=== PATIENT | female | born 1945 | race Caucasian/White ===

== ENCOUNTER 2024-08-19 20:39 | Inpatient (IN) | payer OTHER, SELFPAY ==
[2024-08-19] VITALS (7 sets, daily range): BP systolic 125–157; BP diastolic 53–90; BMI 39.7; BMI 40.6
--- NOTE | 2024-08-19 17:32 | ED.GENMED ---
History of Present Illness
General
Chief Complaint: Breathing Problem
Source: patient
Exam Limitations: none
Time Seen by Provider: 08/19/24 17:30
History of Present Illness
History of Present Illness:
See MDM
Past History
Past History
ED Past Medical History: CHF, COPD, HTN, Hypercholesterolemia, IDDM, Renal failure and Other (Obstructive sleep apnea, pulmonary hypertension, uses CPAP as well as home O2, peripheral neuropathy, chronic neck pain)
ED Past Surgical History: Orthopedic (Bilateral knee replacements, cervical spine surgery)
Social History
Tobacco: Former smoker (Quit in the )
Alcohol: None
Drug: None
Personal: Single
Living: alone
Employment: Retired
Family History
Family History: Other (Noncontributory)
Phy Exam
Physical Exam
Physical Exam:
See MDM
Scores
Heart Failure Risk
Heart Failure Risk Score: Not Applicable
Course
Orders/Labs/Results
Orders:
Orders
08/19/24 17:30
Electrocardiogram (*1) Urgent
Reason for Study: Shortness of Breath
EKG- Treatment ONCE
Dexamethasone Sod Phosphate [Decadron] 10 mg IV NOW STA
Ipratropium/Albuterol Sulfate [Duoneb] 6 ml INH R NOW ONE
08/19/24 17:31
CR Chest - 2 Views Urgent
Comment:
Reason For Exam: SOB, cough, COPD
08/19/24 17:40
Complete Blood Count/With Diff Urgent
Comprehensive Metabolic Panel Urgent
NT-proBNP Urgent
Troponin I Urgent
08/19/24 18:55
Insulin Aspart [NOVOLOG vial] 5 units SC NOW STA
Piperacillin/Tazo 3.375 Gram [Zosyn] 3.375 gram in 50 ml IV NOW
Vancomycin [Vancocin] 2,000 mg 0.9% Sodium Chloride 500 ml [Nss] 500 ml IV NOW
Abnormal Lab Results
08/19/24 08/19/24
17:40 19:12
WBC 14.4 H 10^3/uL
(4.8-10.8)
MCHC 31.1 L g/dL
(33.0-37.0)
MPV 10.7 H fL
(7.4-10.4)
Abs Immat Gran (auto) 0.1 H 10^3/uL
(0-0.05)
Absolute Neuts (auto) 12.2 H 10^3/uL
(1.4-6.5)
Absolute Lymphs (auto) 0.9 L 10^3/uL
(1.2-3.4)
Absolute Monos (auto) 1.1 H 10^3/uL
(0.1-0.6)
Neutrophils % 85.0 H %
(42.2-75.2)
Lymphocytes % 6.5 L %
(20.5-51.1)
Chloride 97 L mmol/L
(98-107)
Carbon Dioxide 35 H mmol/L
(22-30)
Creatinine 1.2 H mg/dL
(0.6-1.0)
Glucose 233 H mg/dl
(70-99)
AST 13 L U/L
(14-36)
POC Glucose 241 H mg/dl
(70-99)
08/19/24 17:40
08/19/24 17:40
Vital Signs
Initial and Last Documented VS:
Initial Vital Signs
Temp Pulse Resp BP Pulse Ox
100.0 F 97 25 151/85 93
08/19/24 17:24 08/19/24 17:24 08/19/24 17:24 08/19/24 17:24 08/19/24 17:24
Last Documented Vital Signs
Temp Pulse Resp BP Pulse Ox
100.0 F 94 30 125/57 93
08/19/24 17:24 08/19/24 18:45 08/19/24 18:45 08/19/24 18:17 08/19/24 18:59
MDM/Problems Addressed
Differential Diagnosis Includes:
HPI and MDM Narrative:
79-year-old female presenting with worsening shortness of breath since today. Patient does have a history of COPD and finished a Medrol Dosepak a few days ago. She had uncomplicated oral surgery yesterday where she had 2 teeth pulled. Patient
states this feels like COPD. She also states that she has a history of congestive heart failure. She placed herself on her BiPAP machine with no resolution. I did notice edematous legs bilaterally but she states this is chronic. EMS provided
aspirin.
On exam, patient is audibly short of breath. She has expiratory wheezing throughout. Will treat as COPD exacerbation with DuoNebs and will give IV Decadron. Will obtain chest x-ray.
Physical exam
General: Mildly uncomfortable, visibly short of breath
HEENT: protecting airway. 2 surgically removed teeth without evidence of infection
Neck: appears supple
CV: No evidence of cyanosis. Regular rate and rhythm
Resp: No accessory muscle use. Expiratory wheezing throughout
Abd: Non-distended
Extremities: Mild pitting edema bilateral lower extremities which patient states is chronic
Neuro: alert
Psych: Normal affect
Skin: Intact
Problems Addressed including Acute and Chronic Conditions affecting care:
1. COPD exacerbation
Acuity: acute
Prognosis: stable
Details: Patient given IV steroids and patient started on DuoNebs. Will obtain chest x-ray
2. Pneumonia
Acuity: acute
Prognosis: stable
Details: Will start antibiotics and admit
3. Hypoxia
Acuity: acute
Prognosis: unstable
Details: Patient requiring 2 L nasal cannula
Updates
7 PM on reassessment after breathing treatment and steroids, patient still symptomatic. Oxygen now decreasing to 77% on room air. Will place on 2 L. Chest x-ray concerning for left lower lobe pneumonia. Will start antibiotics and admit
Differential Diagnosis (but not limited to): COPD exacerbation, CHF exacerbation, pneumonia
Testing considered: CT PE
Drug therapy (if applicable): OTC meds, please see d/c instruction regarding Rx drugs
Amount and/or Complexity of Data Reviewed
Clinical info obtained from: Patient
External data reviewed: N/A
Labs I independently reviewed (but not limited to): Leukocytosis, hyperglycemia
Radiology: X-ray independently reviewed: Chest x-ray concerning for left lower lobe pneumonia
Pulse Ox: hypoxic
EKG independently reviewed: Sinus rhythm, PVCs, normal axis, no STEMI
Core Sucker: Sinus rhythm
Critical Care: N/A
Risk of Complication:
Social Determinants of health: Good social support
Discussed with other providers: Hospitalist
Escalation of Care includes Admit/Obs: Given hypoxia and pneumonia and COPD exacerbation, will admit
Occasional wrong word or 'sound a like' substitutions may have occurred due to the inherent limitations of voice recognition software. Read the chart carefully and recognize, using context, where substitutions have occurred.
*Critical Care Note
Total Time (30-74mins, 75-104mins- exclusive of procedures): Not Applicable
ED Attending Note
-
Portions of this chart may have been created with voice recognition software.� Occasional wrong word or��sound alike� substitutions may have occurred due to the inherent limitations of voice recognition software.
Discharge Plan
Departure
Patient Disposition: Admit
Date of Disposition: 08/19/24
Time of Disposition: 19:14
Admit to: Telemetry
Presentation/result/management discussed w/ accepting MD/DO: Hospitalist
Discharge Problem:
PNA (pneumonia), Acute exacerbation of chronic obstructive pulmonary disease, Hypoxia
Prescriptions:
No Action
insulin glargine [Lantus U-100 Insulin] 1,000 UNITS/10 ML solution
8 units SC HS
aspirin 81 MG tablet,delayed release (DR/EC)
81 mg PO DAILY
ferrous sulfate [FeroSul] 325 MG tablet
325 mg PO BID
rosuvastatin 10 MG tablet
10 mg PO QPM
albuterol sulfate 1 PUFF HFA aerosol inhaler
2 puff inhalation R Q4HPRN PRN (Reason: sob/wheezing) Qty: 1 0RF
Rx Instructions:
please give with spacer
lidocaine 4 % Adhesive Patch,Medicated
1 patch TOPICAL BID PRN (Reason: neck or hip pain)
Rx Instructions:
07/08/22-- currently placed on lower back area
insulin aspart U-100 [Novolog FlexPen U-100 Insulin] 100 unit/mL (3 mL) insulin pen
10 unit SC MEALS
buprenorphine 10 mcg/hour patch weekly
1 patch transdermal MIRANDA
Patient Comments:
applied to behind neck area
Breztri Aerosphere 160-9-4.8 mcg/actuation HFA aerosol inhaler
2 inh INHALATION R BID
midodrine 5 mg Tablet
5 mg PO TID@0800,1300,1800 Qty: 90 0RF
cefdinir 300 mg Capsule
300 mg PO DAILY Qty: 4 0RF
oxycodone 5 mg Tablet
2.5 mg PO Q4HPRN PRN (Reason: severe pain) Qty: 15 0RF
Referrals:
Kenan Ewing DO [Family Provider] -
Interventions
Interventions:
*Risk Screen - Suicide Last Done: 08/19/24 17:31
*General Assessment Last Done: 08/19/24 17:32
*Neglect/Abuse Screening Last Done: 08/19/24 17:31
ED- Fall Risk Assessment Last Done: 08/19/24 17:32
*ED COVID-19 Vaccine History Last Done: 08/19/24 17:30
ED- Cardiac Assessment Last Done: 08/19/24 17:33
ED- Pulmonary Assessment Last Done: 08/19/24 17:33
Discharge Date and Time
Print Language: YEMENI
[2024-08-19] MEDS: DUONEB 6 ML INH (17:39)
[2024-08-19] MEDS: DECADRON 10 MG IV (17:39)
[2024-08-19 17:53] LABS: % Basophils 0.2 % (0-2); % Eosinophils 0.5 % (0-6); % Immature Granulocytes 0.4 % (0-0.5); % Lymphocytes 6.5 % (20.5-51.1); % Monocytes 7.4 % (1.7-9.3); Absolute Eosinophils 0.1 10^3/uL (0-0.7); Absolute Immature Granulocytes 0.1 10^3/uL (0-0.05); Absolute Lymphocytes 0.9 10^3/uL (1.2-3.4); Absolute Monocytes 1.1 10^3/uL (0.1-0.6); Absolute Neutrophils 12.2 10^3/uL (1.4-6.5); Hematocrit 40.8 % (37.0-47.0); Hemoglobin 12.7 g/dL (12.0-16.0); Mean Corp Hgb Conc. 31.1 g/dL (33.0-37.0); Mean Corpuscular Hgb 29.2 pg (27.0-31.0); Mean Corpuscular Volume 93.8 fL (81.0-99.0); Mean Platelet Volume 10.7 fL (7.4-10.4); Nucleated Red Blood Cells % 0 %; Platelet Count 194 10^3/uL (130-400); Red Blood Cell Count 4.35 10^6/uL (4.20-5.40); Red Cell Dist. Width 13.4 % (11.5-14.5); White Blood Cell Count 14.4 10^3/uL (4.8-10.8)
[2024-08-19 18:03] LABS: ALT (SGPT) < 10 U/L (0-35); AST (SGOT) 13 U/L (14-36); Albumin 3.8 g/dl (3.5-5.0); Alkaline Phosphatase 56 U/L (38-126); Blood Urea Nitrogen 16 mg/dl (7-17); Calcium 8.6 mg/dl (8.4-10.2); Carbon Dioxide 35 mmol/L (22-30); Chloride 97 mmol/L (98-107); Estimated Creatinine Clearance 51 ml/min; Glucose 233 mg/dl (70-99); Potassium 4.3 mmol/L (3.5-5.1); Sodium 140 mmol/L (135-145); Total Bilirubin 0.6 mg/dl (0.2-1.3); Total Protein 6.3 g/dl (6.3-8.2); eGFR 46.62
[2024-08-19 18:15] LABS: NT-proBNP 1360 pg/ml; Troponin I < 0.012 ng/ml
[2024-08-19 19:12] LABS: Glucose - Point of Care 241 mg/dl (70-99)
[2024-08-19] MEDS: ZOSYN 50 IV (19:17)
[2024-08-19] MEDS: NOVOLOG vial 5 UNITS SC (19:20)
--- NOTE | 2024-08-19 19:44 | HPS.HSE ---
Family Physician
-
Family Physician: eKnan Ewing
Chief Complaint
-
Shortness of Breath and Chest Tightness
History of Present Illness
Patient is a 79 y/o female past medical history of COPD, CHF, CKD, and DM who presents with shortness of breath. Patient reports suddenly at 2pm she developed shortness of breath that was associated with chest tightness. She reports the chest
tightness occurs on the right side of her chest every time she takes a deep breath. Son notes she was in tears the pain was so intense. Patient reports she tried using her home oxygen that she has for activity, and tried using her CPAP without
improvement in her symptoms. She recently was on steroids for a COPD exacerbation last week, but notes she was feeling well yesterday. She denies any fevers, cough or increased mucus production.
Medical History
Past Medical History
Past Medical History: Reports Other
Additional Past Medical History:
COPD
Chronic HFpEF
Diabetes Mellitus, Type II
Diabetic Neuropathy
CKD Stage III
Recurrent UTIs
Obstructive Sleep Apnea
Chronic Pain Syndrome
Past Surgical History: Reports Other
Additional Past Surgical History:
Bilateral Knee Replacements
Social History
Tobacco: Former Smoker
Alcohol: None
Personal:
Living: Alone
Family History
Family History: Not pertinent
Allergies / Home Medications
Allergies reflects when Allergies were last updated in [facility].
Home Medications with original date entered in [facility]
Allergy/Medication List:
Allergies
Allergy/AdvReac Type Severity Reaction Status Date / Time
morphine Allergy Unknown Verified 08/19/24 17:47
Home Medications
aspirin 81 mg tablet,delayed release 81 mg PO DAILY Blood clot prevention/tx 12/06/21
insulin glargine 100 unit/mL subcutaneous solution (Lantus U-100 Insulin) 8 units SC HS Diabetes 12/06/21
albuterol sulfate 90 mcg/actuation aerosol inhaler 2 puff inhalation R Q4HPRN PRN sob/wheezing ##1 12/11/21
insulin aspart U-100 100 unit/mL (3 mL) subcutaneous pen (Novolog FlexPen U-100 Insulin aspart) 10 unit SC AC Diabetes 07/06/22
ergocalciferol (vitamin D2) 1,250 mcg (50,000 unit) capsule 1,250 mcg PO TH 08/19/24
fluticasone fur. 100 mcg-umeclid 62.5 mcg-vilant 25 mcg inhalat.powder (Trelegy Ellipta) 1 inh inhalation R DAILY 08/19/24
gabapentin 100 mg capsule 100 mg PO BID 08/19/24
vitamins A,C,Q-lvat-fjsjow 4,296 mcg-226 mg-90 mg capsule (PreserVision AREDS) 1 cap PO DAILY 08/19/24
Review of Systems
-
A 12 point ROS was completed and negative except as noted: Yes
Constitutional: Denies Fever or Chills
Respiratory: Reports See HPI
Cardiac: Reports Chest Pain; Denies Palpitations
Physical Exam
Vital Signs
Vital Signs
Temp Pulse Resp BP Pulse Ox
100.0 F 94 30 125/57 93
08/19/24 17:24 08/19/24 18:45 08/19/24 18:45 08/19/24 18:17 08/19/24 18:59
Physical Exam
General: Well Developed, Well Nourished and Conversant (Pulse ox frequently dropped to 86% on 2L with conversation)
HEENT: Anicteric, Moist mucous membranes and Oxygen (Nasal Cannula)
Respiratory: Clear, Non Labored Respirations and Decreased Breath Sounds; No Wheezes or Accessory Resp Muscle Use
Cardiac: S1/S2 and Regular Rhythm
GI: Soft and Non Tender
Rectal: Deferred by Provider
Musculoskeletal: No Clubbing, No Cyanosis and Other (Non-pitting edema bilateral lower extremities which patient reports is chronic)
Skin: Warm and Dry
Neuro: Awake, Alert, Oriented and Nonfocal/grossly intact
Psych: Calm
Laboratory Results
-
08/19/24 17:40
08/19/24 17:40
Laboratory Results
Total Bilirubin 0.6 mg/dl (0.2-1.3) 08/19/24 17:40
AST 13 U/L (14-36) L 08/19/24 17:40
ALT < 10 U/L (0-35) 08/19/24 17:40
Alkaline Phosphatase 56 U/L (38-126) 08/19/24 17:40
Troponin I < 0.012 ng/ml 08/19/24 17:40
Data Reviewed
-
Diagnostic Radiology: Report Reviewed by me
Lab Data: Labs Reviewed by me
Impression/Plan
-
Acute on Chronic Hypoxic Respiratory Failure, possible COPD Exacerbation vs Pneumonia vs Pulmonary Embolism
-Consult Pulmonary
-Continue supplemental oxygen
-Renal function is borderline and patient expresses concern about prior kidney injury following IV contrast in the past therefore will hold on CT PE Study - Check D-Dimer - If positive plan to start heparin drip and obtain VQ scan in AM
-Patient received dose of IV antibiotics in ED - CXR is not convincing for pneumonia, however patient is noted with leukocytosis which could be related to recent steroids - Check Procalcitonin - If negative stop antibiotics
-Continue Pulmicort, DuoNeb and Decadron 4mg q12h for COPD Exacerbation
Chronic HFpEF
-Continue low sodium diet
-Monitor Is&Os and Daily Weights
Diabetes Mellitus, Type II
-Continue Lantus and Novolog
-Monitor sugars and continue coverage insulin
Diabetic Neuropathy
-Continue Gabapentin
CKD Stage III
-Creatinine stable
Obstructive Sleep Apnea
-Continue CPAP
DVT proph: Heparin
Code Status: DNR
[2024-08-19] MEDS: VANCOCIN 540 MG IV (20:14)
[2024-08-19 20:35] LABS: APTT 31.1 Sec (23.4-35.0)
[2024-08-19 20:37] LABS: D-Dimer 0.46 ug/mlFEU (0.00-0.50)
[2024-08-19 20:55] LABS: Procalcitonin < 0.05 ng/ml (0.0-0.25)
--- NOTE | 2024-08-19 21:11 | W.PN.UPDATE ---
Update Note
Progress Note Update
This note serves as an addendum to the H&P by inventory accountant TONJA ROBLES
HPI:
79F Class II Obesity BMI 39, HX COPD, home O2 mainly at night Chr HFpEF, CKD3, IDT2DM seen at ER :
- pw sudden onset shortness of breath associated with chest tightness
- report Adina is at right side exacerbate by deep breath. Son notes she was in tears the pain was so intense.
- no relieve with home O2 and CPAP without improvement in her symptoms.
- recently was on steroids for a COPD flare last week, but notes she was feeling well yesterday.
ROS
- denies any fevers, cough or increased mucus production.
PHX as above
PE
Gen: NAD, not toxic , Obese
HEENT: anicteric
Neck: not JVD
Lungs:s symmetric AE, no wheeze
Cor: RRR S1 S2
Abdomen: obese
CV RN: AAO3
MS:
Psych: appropriates
Data
CXR:
1. Mild chronic right to left mediastinal shift.
2. Large bilateral pericardial fat pads.
3. Mild chronic scarring in the left lower lobe.
EKG
SINUS RHYTHM WITH OCCASIONAL PREMATURE VENTRICULAR COMPLEXES
LOW VOLTAGE QRS
BORDERLINE ECG
WHEN COMPARED WITH ECG OF 28-AUG-2023 22:50,
PREMATURE VENTRICULAR COMPLEXES ARE NOW PRESENT
12/05/22 TTE
LVEF 70-75
Normal diastolic function.
Normal right ventricular size and function.
Mild tricuspid regurgitation. Estimated pulmonary artery pressure of 58-63 mmHg assuming a right atrial pressure of 3 mmHg.
ASSESSMENT & PLAN
Acute on Chronic Hypoxic RF
DDX: presumed COPD flare, low suspicion for PE(unremarkable DD< clinically not in acute HF
No evidence of PNA on CXR
Underlying KENNETH on CPAP
- due to CKD3, would avoid CT with IV contrast
- VQ scan to complete w/u but clinically low index of suspicion for PE
- will hold off on empiric Heparin gtt
- Empiric IV Decadron 4mg q12h
- Nebs
- supplemental oxygen
-Hold ABX pending OPCT
- Pulmonary consult
Current hi WCC is likely due to KINESIOTHERAPIST steroids
HX KENNETH on nocturnal CPAP and O2 at night
- continue CPAP HS
Chronic HFpEF : clinically stable
Chronic diastolic CHF
Unremarkable proBNP
- c/w low sodium diet
- Daily Weights
DM2 with microvascular complications - retinopathy, neuropathy though urine protein/creatinine ratio 0.1
- Continue Lantus and Novolog
- add ISS low
Diabetic Neuropathy
- cont Gabapentin
CKD3 baseline creatinine 1.6-1.8 MG/D
Chronic anemia possibly CKD component
- Observe Cr
Bilateral lower extremity edema
HX Chronic pain syndrome
Fibromyalgia
DVT proph: Heparin
DNR per advanced directives
IP TLM
--- NOTE | 2024-08-19 23:07 | PTCARENOTE ---
Pt arrived on to floor @2307. Pt AAOx3 and able to ambulate into room with minimal assistance. Pt with no complaints of pain or SOB at this time. Pt oriented to room and call vasquez; will continue to monitor
[2024-08-19] MEDS: PULMICORT INH (23:08)
[2024-08-19] MEDS: DUONEB INH (23:08)
[2024-08-19 23:21] LABS: Glucose - Point of Care 264 mg/dl (70-99)
[2024-08-19] MEDS: NEURONTIN 100 MG PO (23:41)
[2024-08-19] MEDS: HEPARIN 5000 UNITS SC (23:42)
[2024-08-20] VITALS (9 sets, daily range): BP systolic 137–167; BP diastolic 64–86; PULSE 85; O2SAT 87–96; BMI 40.3
[2024-08-20 07:31] LABS: Glucose - Point of Care 297 mg/dl (70-99)
[2024-08-20] MEDS: DUONEB 3 ML INH ×3 (07:52→18:48)
[2024-08-20] MEDS: PULMICORT 0.5 MG INH ×2 (07:52→18:48)
[2024-08-20 08:38] LABS: Glycohemoglobin (HgbA1c) 7.2 % (4.0-5.6)
[2024-08-20 08:39] LABS: Hematocrit 41.3 % (37.0-47.0); Hemoglobin 12.8 g/dL (12.0-16.0); Mean Corpuscular Volume 93.7 fL (81.0-99.0); Mean Platelet Volume 11.6 fL (7.4-10.4); Platelet Count 207 10^3/uL (130-400); Red Blood Cell Count 4.41 10^6/uL (4.20-5.40); Red Cell Dist. Width 13.3 % (11.5-14.5); White Blood Cell Count 13.3 10^3/uL (4.8-10.8)
[2024-08-20] MEDS: NOVOLOG FLEXPEN 10 UNITS SC ×3 (08:45→17:39)
[2024-08-20] MEDS: NOVOLOG FLEXPEN-MODERATE RESISTANCE 5 UNITS SC (08:46)
[2024-08-20] MEDS: HEPARIN 5000 UNITS SC ×2 (08:47→17:38)
[2024-08-20] MEDS: ASPIR LOW (ENTERIC COATED) 81 MG PO (08:48)
[2024-08-20] MEDS: DECADRON 4 MG IV ×2 (08:48→21:23)
[2024-08-20] MEDS: NEURONTIN 100 MG PO ×2 (08:49→21:23)
[2024-08-20] MEDS: DRISDOL (VITAMIN D2) 50000 UNITS PO (08:50)
[2024-08-20 08:59] LABS: Blood Urea Nitrogen 18 mg/dl (7-17); Calcium 8.7 mg/dl (8.4-10.2); Carbon Dioxide 30 mmol/L (22-30); Chloride 95 mmol/L (98-107); Estimated Creatinine Clearance 50 ml/min; Glucose 330 mg/dl (70-99); Potassium 4.5 mmol/L (3.5-5.1); Sodium 140 mmol/L (135-145); eGFR 46.62
--- NOTE | 2024-08-20 10:46 | CON.PUL ---
Consultation
Consultation Request
Date/Time Consultation Requested: 08/20/2024-8 AM
Date/Time Consultation Performed: 08/20/2024-9 AM
Requesting Provider: Hospitalist
Performing Provider: Dr. Leija
Reason for Consultation: Shortness of breath
Medical History
-
Chief Complaint: Shortness of breath
History of Present Illness:
79-year-old female patient with a history of underlying COPD, obstructive sleep apnea followed by Dr. Coronado, diabetes who developed shortness of breath and chest tightness-pulmonary was consulted for shortness of breath/COPD/obstructive sleep
apnea 08/20/2024.. Patient states she was in usual state of health until she had 2 teeth extracted. Later on the next day she developed atypical anterior sharp chest pain that radiated to her neck and upper posterior head. 10 mild increased
shortness of breath. She has chronic dyspnea exertion and currently denies any chest pain, chest tightness, wheezing, productive cough, hemoptysis, abdominal pain, or increasedlower extremity edema
Past Medical History
Past Medical History: None (COPD. KENNETH on CPAP. Heart failure preserved EF. Diabetes. Diabetic neuropathy. Chronic kidney disease stage III. Recurrent UTIs. Chronic pain syndrome. Bilateral knee replacements.)
Social History
Tobacco: Former Smoker
Alcohol: None
Drug: None
Personal:
Living: With Family
Occupational Exposures: No known asbestos exposure
Environmental Exposures: No known tuberculosis exposure
Family History
Family History: Reviewed & Not Pertinent
Allergies / Home Medications
Allergies
Allergy/AdvReac Type Severity Reaction Status Date / Time
morphine Allergy Unknown Verified 08/19/24 17:47
Home Medications
�Medication �Instructions �Recorded �Confirmed �Last Taken �Type
aspirin 81 mg tablet,delayed 81 mg PO DAILY Blood clot 12/06/21 08/19/24 08/19/24 History
release prevention/tx
insulin glargine 100 unit/mL 8 units SC HS Diabetes 12/06/21 08/19/24 08/18/24 History
subcutaneous solution (Lantus
U-100 Insulin)
albuterol sulfate 90 mcg/actuation 2 puff inhalation R Q4HPRN PRN 12/11/21 08/19/24 Unknown Rx
aerosol inhaler sob/wheezing ##1
insulin aspart U-100 100 unit/mL 10 unit SC AC Diabetes 07/06/22 08/19/24 08/19/24 14:00 History
(3 mL) subcutaneous pen (Novolog
FlexPen U-100 Insulin aspart)
ergocalciferol (vitamin D2) 1,250 1,250 mcg PO TH 08/19/24 08/19/24 08/13/24 History
mcg (50,000 unit) capsule
fluticasone fur. 100 mcg-umeclid 1 inh inhalation R DAILY 08/19/24 08/19/24 08/19/24 History
62.5 mcg-vilant 25 mcg
inhalat.powder (Trelegy Ellipta)
gabapentin 100 mg capsule 100 mg PO BID 08/19/24 08/19/24 08/19/24 History
vitamins A,C,N-tush-aowryq 4,296 1 cap PO DAILY 08/19/24 08/19/24 08/19/24 History
mcg-226 mg-90 mg capsule
(PreserVision AREDS)
Review of Systems
-
Unable to Obtain full review of systems at this time due to: Other (Per HPI)
Vitals / Labs / Diagnostic Testing
Vital Signs
Temp Pulse Resp BP Pulse Ox
97.3 F 97 18 141/64 95
08/20/24 07:59 08/20/24 08:26 08/20/24 08:26 08/20/24 07:59 08/20/24 08:26
Lab Data
08/20/24 07:25
08/20/24 07:25
Laboratory Results
08/19/24
20:12
APTT 31.1
Diagnostic Testing:
Physical Exam
-
Exam:
Well-nourished and well-developed in no apparent distress
HEENT-atraumatic, normocephalic
Neck-supple, no JVD, no bruit
Heart-regular rate and rhythm-systolic murmur
Chest with diminished breath sounds, prolonged expiratory time, few wheezes and rare crackles
Abdomen-soft, nontender, nondistended, no hepatosplenomegaly
Extremities-no cyanosis, clubbing, trace edema
Integument-intact, no rashes, lesions or ecchymosis
Neurology-alert and oriented, nonfocal motor and sensory exam
Assessment
-
79-year-old female patient with a history of underlying COPD, obstructive sleep apnea followed by Dr. Coronado, diabetes who developed shortness of breath and chest tightness-pulmonary was consulted for shortness of breath/COPD/obstructive sleep
apnea 08/20/2024.
Chronic heart failure preserved EF
Atypical chest pain-rule out pulmonary [id number]-T-jpldr negative, VQ scan pending-low suspicion
Leukocytosis
Bronchitis versus early pneumonia-procalcitonin negative
Conditions present prior to admission:
COPD.
Pulmonary nodule-followed by Dr. Coronado
Pulmonary hypertension
KENNETH on CPAP with 3 L of oxygen
Morbid obesity
Heart failure preserved EF.
Diabetes.
Diabetic neuropathy.
Chronic kidney disease stage III.
Recurrent UTIs.
Chronic pain syndrome.
Bilateral knee replacements.
Plan
Supplemental oxygen as needed
CPAP at night
Nebulizers
Aspiration precautions
Incentive spirometry
Mucolytic's
Decadron-fairly rapid taper
VQ scan-Will be discontinued with negative d-dimer
Heparin drip-can be changed to heparin subcutaneous
Check cultures
Procalcitonin-negative
Observe off antibiotics
Diuresis as tolerated
Monitor renal function, electrolytes, intake/output, lower extremity edema and weight
Replace electrolytes as needed
Monitor blood sugar
Insulin supplementation as needed
Last seen by Dr. Coronado 09/20/2023-will need follow-up
Diagnostic data:
Chest x-ray 08/19/2024-chronic right to left mediastinal shift, mild scarring left lower lobe
CXR 08/28/23: linear atelectasis/denssity at the base, right base prominent. When compared to 07/08/22, appears to be slightly worse (my review)�������
CT chest 07/18/23 ([facility]): Mild emphysema. Stable right middle lobe nodule 2 mm, 4 mm left lower lobe noduule with no change compared to May 2021 per report������
CXR 07/08/22: NAD�������
CT CHEST 12/07/21: moderate enlargement of central pulmonary arteries, suggesting pulmonary arterial HTN. Mild scarring both lungs. Mild b/l upper lobe centrilobular emphysema. small number of sub-5mm solid pulmonary nodules. 8.1 mm ground glass
pulmonary nodule in the RUL, image #20. follow up CT recommended in 6-12 months. multinodular thyroid goiter. small hiatal hernia.�������
US BLE 12/06/21: negative for DVT�������
CXR 12/06/21: minimal linear opacity within the retrocardiac region, most likely reflective of subsegmental atelectasis or scarring.
CT chest 12/07/2021-no CT evidence for central pulmonary embolism, pulm hypertension, mild scarring, small number of sub-5 mm solid pulmonary nodules
Echo 12/05/22: EF 75%, normal RV size and function, PA pressure 63�������
Echo 12/07/21: hyperdynamic EF 77%, normal RV, normal valves, right heart pressures could not be determined���
����
Echo 09/18/18 ([facility]): EF 65%, diastolic dysfunction, PASP 40, mild aortic root dilatation.
Echocardiogram 12/05/2022-EF 70-75%, PA systolic 58-63, normal diastolic function
Diana 09/20/23: FVC 1.15/40%, FEV1 0.66/30%, ratio 57. This is stable�������
PFT 01/01/23: FVC 2.14/70%, FEV1 1.24/54%, ratio 58. There is an 11% improvement in the FEV1 following bronchodilator. TLC 4.03/76%, DLCO 10.02/46%. Moderate obstruction, mild restriction with bronchodilator response and moderate to severe gas
exchange defect. Spirometry has significantly improved�������
David 05/23/22: FVC 1.15/39%, FEV1 0.77/34%, ratio 67%, no significant BD response. Severe obstruction. Declined since prior testing.�������
Spirometry 12/07/21: FVC 1.82/57%, FEV1 1.09/45%, ratio 60%. Significant BD response in FEV1, 20%.
Data Reviewed
-
PFT: Report reviewed by me
EKG: Report reviewed by me
Radiology: Image personally visualized and interpreted and Report reviewed by me
CT Scan: Image personally visualized and interpreted and Report reviewed by me
Ultrasound: Report reviewed by me
Medical Tests (Nuc Med, Echo etc): Report reviewed by me
Labs: Labs reviewed by me
Old Records: Reviewed
Total Time Spent with Patient (in minutes): 65
--- NOTE | 2024-08-20 11:40 | CM ---
Patient seen bedside. IA completed.
Patient lives alone in a 1 story home with 5 steps to enter.
Patient has railings on steps and has a porch.
Patient ambulates with a Rolator or RW.
Patient on oxygen 2 liters at baseline on CPAP at night.
Patient has a portable [employer] and has a concentrator thru [email or web address].
Patient is on Palliative care and denies need vor VN at thgis time.
Patient also has a private PT come to the house due to right arm weakness and neck pain. She will contact him.
Son will transport home an will bring oxygen in to the hospital at time of d/c.
PCP: Dr Ewing
Pharmacy: [facility]
Plan: home with resumption of palliative Care
Palliative care
--- NOTE | 2024-08-20 11:41 | W.PN.HOSP.TC ---
Today's Communication/Plan
-
steroids, nebs
cancel V/Q scan
Assessment / Plan
Assessment / Plan
ASSESSMENT & PLAN
CXR
IMPRESSION:
1. Mild chronic right to left mediastinal shift.
2. Large bilateral pericardial fat pads.
3. Mild chronic scarring in the left lower lobe.
Acute on Chronic Hypoxic RF
DDX: presumed COPD flare, low suspicion for PE (unremarkable DD< clinically not in acute HF)
No evidence of PNA on CXR
Underlying KENNETH on CPAP
- due to CKD3, would avoid CT with IV contrast; d-dimer negative
- VQ scan to complete w/u but clinically low index of suspicion for PE; d-dimer negative and patient's symptoms improved - will cancel test
- Empiric IV Decadron 4mg q12h
- Nebs
- supplemental oxygen
-procal negative - hold off on abx
Current hi WCC is likely due to [employer] steroids
HX KENNETH on nocturnal CPAP and O2 at night
- continue CPAP HS
Chronic HFpEF : clinically stable
Chronic diastolic CHF
Unremarkable proBNP
- c/w low sodium diet
- Daily Weights
DM2 with microvascular complications - retinopathy, neuropathy though urine protein/creatinine ratio 0.1
A1c 7.2
- Continue Lantus and Novolog - increase Lantus while on steorids
- add ISS low
Diabetic Neuropathy
- cont Gabapentin
CKD3 baseline creatinine 1.6-1.8 MG/D
Chronic anemia possibly CKD component
- Observe Cr
Bilateral lower extremity edema
HX Chronic pain syndrome
Fibromyalgia
DVT proph: Heparin
DNR per advanced directives
IP TLM
Anticipated Discharge: 24 - 48 hours
Subjective/Interval History
-
Date of Service: August 20, 2024
pain now nearly resolved - feels very mildly with deep breaths
Objective Data
-
Labs:
Laboratory Results
08/20/24
07:25
WBC 13.3 H
Hgb 12.8
Hct 41.3
Plt Count 207
Sodium 140
Potassium 4.5
Chloride 95 L
Carbon Dioxide 30
BUN 18 H
Creatinine 1.2 H
Glucose 330 H
Calcium 8.7
Vital Signs:
Vital Signs
Temp Pulse Resp BP Pulse Ox
97.3 F 97 18 141/64 95
08/20/24 07:59 08/20/24 08:26 08/20/24 08:26 08/20/24 07:59 08/20/24 08:26
Review of Systems
-
History Source: Patient
All other systems: Reviewed and negative
Physical Exam
-
General: No Apparent Distress
HEENT: PERRLA
Respiratory: Negative Wheezes
Cardiac: Regular Rhythm and S1/S2
GI: Soft and Nontender
Musculoskeletal: No Edema
Skin: Warm and Dry; Negative Rash
Neuro: AO x 3
Psych: Calm
Data Reviewed
-
Diagnostic Radiology: Report Reviewed by me
Labs: Labs Reviewed by me
[2024-08-20 12:27] LABS: Glucose - Point of Care 191 mg/dl (70-99)
[2024-08-20] MEDS: NOVOLOG FLEXPEN-MODERATE RESISTANCE 1 UNITS SC (12:44)
[2024-08-20 14:51] LABS: Troponin I < 0.012 ng/ml
[2024-08-20] MEDS: DUONEB INH (15:46)
[2024-08-20 16:17] LABS: Glucose - Point of Care 317 mg/dl (70-99)
[2024-08-20] MEDS: NOVOLOG FLEXPEN-MODERATE RESISTANCE 7 UNITS SC (17:39)
[2024-08-20 21:34] LABS: Glucose - Point of Care 318 mg/dl (70-99)
[2024-08-20] MEDS: LANTUS 0.12 UNITS SC (21:37)
[2024-08-21 00:10] VITALS: PULSE 88
[2024-08-21] MEDS: HEPARIN 5000 UNITS SC ×2 (00:10→08:16)
[2024-08-21 03:30] VITALS: BP 143/81
[2024-08-21 06:00] VITALS: BMI 40.0
[2024-08-21 07:31] LABS: Glucose - Point of Care 305 mg/dl (70-99)
[2024-08-21 08:00] VITALS: BP 131/78
[2024-08-21] MEDS: NOVOLOG FLEXPEN-MODERATE RESISTANCE 7 UNITS SC (08:14)
[2024-08-21] MEDS: DECADRON 4 MG IV (08:15)
[2024-08-21] MEDS: NEURONTIN 100 MG PO (08:15)
[2024-08-21] MEDS: NOVOLOG FLEXPEN 10 UNITS SC ×2 (08:15→12:53)
[2024-08-21] MEDS: ASPIR LOW (ENTERIC COATED) 81 MG PO (08:16)
[2024-08-21] MEDS: DUONEB 3 ML INH ×2 (08:28→11:18)
[2024-08-21] MEDS: PULMICORT 0.5 MG INH (08:29)
--- NOTE | 2024-08-21 10:13 | W.PN.PUL.V3 ---
Today's Communication / Plan
-
.
Wean FiO2.
Steroid taper.
Stable for discharge-outpatient pulmonary follow-up
Assessment
-
79-year-old female patient with a history of underlying COPD, obstructive sleep apnea followed by Dr. Coronado, diabetes who developed shortness of breath and chest tightness-pulmonary was consulted for shortness of breath/COPD/obstructive sleep
apnea 08/20/2024.
Chronic heart failure preserved EF
Atypical chest pain-rule out pulmonary pshnbuzz-K-dghcw negative, VQ scan pending-low suspicion
Leukocytosis
Bronchitis versus early pneumonia-procalcitonin negative
Conditions present prior to admission:
COPD.
Pulmonary nodule-followed by Dr. Coronado
Pulmonary hypertension
KENNETH on CPAP with 3 L of oxygen
Morbid obesity
Heart failure preserved EF.
Diabetes.
Diabetic neuropathy.
Chronic kidney disease stage III.
Recurrent UTIs.
Chronic pain syndrome.
Bilateral knee replacements.
Plan
Respiratory status has improved.
Wean supplemental oxygen
CPAP at night
Nebulizers
Aspiration precautions
Incentive spirometry
Mucolytic's
Decadron-fairly rapid taper-converted to prednisone with rapid taper
VQ scan-Will be discontinued with negative d-dimer
Heparin drip-can be changed to heparin subcutaneous
.
Cultures reviewed
Procalcitonin-negative
Observe off antibiotics
Diuresis . Continuesas tolerated
Monitor renal function, electrolytes, intake/output, lower extremity edema and weight
Replace electrolytes as needed
Monitor blood sugar
Insulin supplementation as needed
Stable for discharge from a pulmonary perspective.
Dr. Leija called patient's son, Axel 08/20/24 and updated him extensively
Last seen by Dr. Coronado 09/20/2023-will need follow-up
Diagnostic data:
Chest x-ray 08/19/2024-chronic right to left mediastinal shift, mild scarring left lower lobe
CXR 08/28/23: linear atelectasis/denssity at the base, right base prominent. When compared to 07/08/22, appears to be slightly worse (my review)�������
CT chest 07/18/23 ([facility]): Mild emphysema. Stable right middle lobe nodule 2 mm, 4 mm left lower lobe noduule with no change compared to May 2021 per report������
CXR 07/08/22: NAD�������
CT CHEST 12/07/21: moderate enlargement of central pulmonary arteries, suggesting pulmonary arterial HTN. Mild scarring both lungs. Mild b/l upper lobe centrilobular emphysema. small number of sub-5mm solid pulmonary nodules. 8.1 mm ground glass
pulmonary nodule in the RUL, image #20. follow up CT recommended in 6-12 months. multinodular thyroid goiter. small hiatal hernia.�������
US BLE 12/06/21: negative for DVT�������
CXR 12/06/21: minimal linear opacity within the retrocardiac region, most likely reflective of subsegmental atelectasis or scarring.
CT chest 12/07/2021-no CT evidence for central pulmonary embolism, pulm hypertension, mild scarring, small number of sub-5 mm solid pulmonary nodules
Echo 12/05/22: EF 75%, normal RV size and function, PA pressure 63�������
Echo 12/07/21: hyperdynamic EF 77%, normal RV, normal valves, right heart pressures could not be determined���
����
Echo 09/18/18 ([facility]): EF 65%, diastolic dysfunction, PASP 40, mild aortic root dilatation.
Echocardiogram 12/05/2022-EF 70-75%, PA systolic 58-63, normal diastolic function
David 09/20/23: FVC 1.15/40%, FEV1 0.66/30%, ratio 57. This is stable�������
PFT 01/01/23: FVC 2.14/70%, FEV1 1.24/54%, ratio 58. There is an 11% improvement in the FEV1 following bronchodilator. TLC 4.03/76%, DLCO 10.02/46%. Moderate obstruction, mild restriction with bronchodilator response and moderate to severe gas
exchange defect. Spirometry has significantly improved�������
David 05/23/22: FVC 1.15/39%, FEV1 0.77/34%, ratio 67%, no significant BD response. Severe obstruction. Declined since prior testing.�������
Spirometry 12/07/21: FVC 1.82/57%, FEV1 1.09/45%, ratio 60%. Significant BD response in FEV1, 20%.
Subjective Data
-
Date of Service:
Date of Service: August 21, 2024
Chief Complaint: Pulmonary Follow Up and Dyspnea Follow Up
Subjective:
Feels much improved, no chest pain, shortness of breath, productive cough
Review of Systems
General: Other ( per HPI)
Objective Data
Data Reviewed
Vital Signs / I&O:
Vital Signs
Temp Pulse Resp BP Pulse Ox
97.2 F 87 18 131/78 91
08/21/24 08:00 08/21/24 08:31 08/21/24 08:31 08/21/24 08:00 08/21/24 08:31
Intake and Output
08/20/24 08/21/24 08/22/24
06:59 06:59 06:59
Intake Total 660 / 660
Balance 660 / 660
SaO2: 91
Nasal Cannula flow liters per minute: 3
Physical Exam
General: Respiratory Distress (n) and Comfortable
HEENT: Anicteric
Cardiovascular: Regular Rhythm
Respiratory: Clear ( diminished breath sounds and prolonged expiratory time), Wheeze (n), Crackles ( rare basilar), Rhonchi (n), Non-Labored Respirations, Accessory Resp Muscle Use (n) and Stridor (n)
GI: Soft, Non Distended and Non Tender
Neurology: Awake, Alert and No Motor Deficits
Skin: Warm, Good Color, Cyanosis (n), Jaundice (n) and Rash (n)
Labs/Micro/Reports
Lab Data
08/20/24 07:25
08/20/24 07:25
[2024-08-21 11:35] VITALS: BP 151/80
--- NOTE | 2024-08-21 12:16 | W.PN.HOSP.TC ---
Addendum entered and electronically signed by Nelda Bray MD 08/23/24 18:02:
Obesity due to excess calories - dietary education
Chronic hypoxic respiratory failure on continuous home O2 at nighttime
Original Note:
Today's Communication/Plan
-
plan to DC today
Assessment / Plan
Assessment / Plan
ASSESSMENT & PLAN
CXR
IMPRESSION:
1. Mild chronic right to left mediastinal shift.
2. Large bilateral pericardial fat pads.
3. Mild chronic scarring in the left lower lobe.
Acute on Chronic Hypoxic RF
DDX: presumed COPD flare, low suspicion for PE (unremarkable DD< clinically not in acute HF)
No evidence of PNA on CXR
Underlying KENNETH on CPAP
- d-dimer negative and pain improved overnight HD 1 therefore no concern for PE and V/Q scan cancelled (discussed with Pulm who agreed)
-she is now off oxygen and has FO2 for exertion at home
- Empiric IV Decadron 4mg q12h --> transition to oral prednisone
- Nebs
-procal negative - hold off on abx
-plan for DC today (confirming OK with Pulm)
Current hi WCC is likely due to [employer] steroids
HX KENNETH on nocturnal CPAP and O2 at night
- continue CPAP HS
Chronic HFpEF : clinically stable
Chronic diastolic CHF
Unremarkable proBNP
- c/w low sodium diet
- Daily Weights
DM2 with microvascular complications - retinopathy, neuropathy though urine protein/creatinine ratio 0.1
A1c 7.2
- Continue Lantus and Novolog - sugars running high while on steroids - dose to start decreasing tomorrow
- add ISS low
Diabetic Neuropathy
- cont Gabapentin
CKD3 baseline creatinine 1.6-1.8 MG/D
Chronic anemia possibly CKD component
- Observe Cr
Bilateral lower extremity edema
HX Chronic pain syndrome
Fibromyalgia
DVT proph: Heparin
DNR per advanced directives
IP TLM
Anticipated Discharge: Today
Subjective/Interval History
-
Date of Service: August 21, 2024
feeling much better
no chest pain
wants to go home
Objective Data
-
Vital Signs:
Vital Signs
Temp Pulse Resp BP Pulse Ox
97.8 F 95 20 151/80 93
08/21/24 11:35 08/21/24 11:35 08/21/24 11:35 08/21/24 11:35 08/21/24 11:35
I&O
08/20/24 08/21/24 08/22/24
06:59 06:59 06:59
Intake Total 660 / 660
Balance 660 / 660
Review of Systems
-
History Source: Patient
All other systems: Reviewed and negative
Physical Exam
-
General: No Apparent Distress
HEENT: PERRLA
Respiratory: Negative Wheezes
Cardiac: Regular Rhythm and S1/S2
GI: Soft and Nontender
Musculoskeletal: No Edema
Skin: Warm and Dry; Negative Rash
Neuro: AO x 3
Psych: Calm
Data Reviewed
-
Diagnostic Radiology: Report Reviewed by me
Labs: Labs Reviewed by me
--- NOTE | 2024-08-21 12:30 | W.DS.TRANS ---
DC Summary - Home Health Clinical Supervisor
-
Discharge Instructions:
Discharge Diagnosis/Procedures acute COPD exacerbation and right-sided chest
pain
Diet Diabetic, Carb Controlled
Activity As tolerated
Driving Restrictions As prior to admission
Bathing Restrictions None
Instructions:
Stand-Alone Forms:
Changes to Home Medications: Yes
Discharge Medications:
DC Medications w/original date entered in [employer]
aspirin 81 mg tablet,delayed release 81 mg PO DAILY Blood clot prevention/tx 12/06/21
insulin glargine 100 unit/mL subcutaneous solution (Lantus U-100 Insulin) 8 units SC HS Diabetes 12/06/21
albuterol sulfate 90 mcg/actuation aerosol inhaler 2 puff inhalation R Q4HPRN PRN sob/wheezing ##1 12/11/21
insulin aspart U-100 100 unit/mL (3 mL) subcutaneous pen (Novolog FlexPen U-100 Insulin aspart) 10 unit SC AC Diabetes 07/06/22
ergocalciferol (vitamin D2) 1,250 mcg (50,000 unit) capsule 1,250 mcg PO TH 08/19/24
fluticasone fur. 100 mcg-umeclid 62.5 mcg-vilant 25 mcg inhalat.powder (Trelegy Ellipta) 1 inh inhalation R DAILY 08/19/24
gabapentin 100 mg capsule 100 mg PO BID 08/19/24
vitamins A,C,Z-lnen-srrsxu 4,296 mcg-226 mg-90 mg capsule (PreserVision AREDS) 1 cap PO DAILY 08/19/24
prednisone 10 mg tablet 10 mg PO DAILY #20 tabs 08/21/24
Home Medication Changes
addition of prednisone taper
Pending Results: No
[2024-08-21] MEDS: NOVOLOG FLEXPEN-MODERATE RESISTANCE 5 UNITS SC (12:52)
[2024-08-21 12:53] LABS: Glucose - Point of Care 257 mg/dl (70-99)
[2024-08-21] MEDS: DECADRON 2 MG IV (12:53)
--- NOTE | 2024-08-21 14:09 | CM ---
Home today no needs.
Plan; Home no needs.
--- NOTE | 2024-08-21 14:50 | PN.CDI ---
CDI
- -
CDI:
Physician Documentation Request
Admit Date: 08/19/24 20:39
Dear Doctor Katarina,
Hospitalist progress notes include a diagnosis of 'Acute on Chronic Hypoxic RF'
Documented vital signs show the patient on 2-3L O2 and room air.
H&P states 'home O2 mainly at night'
Could you please clarify the patients respiratory status:
Chronic hypoxic respiratory failure on continuous home O2
Hypoxia - uses O2 intermittently
Other
Use of terms such as suspected, likely, concern for, or probable (associated with a specific diagnosis that is being evaluated, monitored, or treated as if it exists) are acceptable and can be coded in the inpatient setting, when documented at the
time of discharge.
Thank you,
Muna Webber RN, BSN
CDI Specialist
tiger text
Please use your independent medical judgment in providing your response.
--- NOTE | 2024-08-21 14:56 | PN.CDI ---
CDI
- -
CDI:
Physician Documentation Request
Admit Date: 08/19/24 20:39
Dear Doctor Katarina,
08/20 RD note states 'Weight-249 lbs 8 oz (08/20, BMI 40.3-obese)
If possible, please provide an associated diagnosis related to the abnormal BMI, such as:
BMI > or = to 40
Overweight
Obesity:
Due to excess calories
Drug induced
Due to other cause
Severe or morbid obesity:
With alveolar hypoventilation (Obesity hypoventilation syndrome)
Without alveolar hypoventilation
- BMI is not significant
- Other
Use of terms such as suspected, likely, concern for, or probable (associated with a specific diagnosis that is being evaluated, monitored, or treated as if it exists) are acceptable and can be coded in the inpatient setting, when documented at the
time of discharge.
Thank you,
Muna Webber RN,BSN
CDI Specialist
tiger text
Please use your independent medical judgment in providing your response.
--- NOTE | 2024-08-21 15:52 | W.DCSUMMARY ---
Discharge Summary
Discharge Data
Date of Admission: 08/19/24
Date of Discharge: 08/21/24
-
Pending Results: No
Hospital Course
Discharging Physician : Dr. Nelda Bray
Disposition : Home
Primary care physician : Dr. Kenan Ewing
Principal Discharge diagnosis : COPD Exacerbation, Pleuritic Chest Pain
Hospital Course :
Ms. Ava Sun is a 79 yo woman with hx COPD, HFpEF, CKD, IDDM who presents to the ER with sudden pleuritic chest pain without relief from home O2 or CPAP. Triage vitals T 100, P 97, SpO2 93%; she was found to have diffuse expiratory wheezing.
D-dimer negative. Troponin negative x 2. She was admitted to medicine for treatment of COPD exacerbation. Overnight hospital day 1, patient's symptoms were much improved. Her pain was nearly gone with improvement in shortness of breath and no
wheezing heard on exam. On HD 2 patient is weaned off oxygen and feels ready for discharge. She is discharged on a steroid taper and has outpatient follow up with Pulmonary.
Time spent on discharge was 31 minutes
Important imaging findings :
CXR
IMPRESSION:
1. Mild chronic right to left mediastinal shift.
2. Large bilateral pericardial fat pads.
3. Mild chronic scarring in the left lower lobe.
Procedure findings :
Discharge Plan
-
Patient Disposition: Home (Routine Discharge)
Discharge Diagnosis/Procedures: acute COPD exacerbation and right-sided chest pain
Diet: Diabetic, Carb Controlled
Activity: As tolerated
Driving Restrictions: As prior to admission
Bathing Restrictions: None
Referrals:
Ramin Coronado MD [Active] - ( or nurse practitioner-recent hospitalization)
Kenan Ewing DO [Family Provider] - in less than 1 week
Additional Discharge Medication Instructions: Prednisone Taper:
Take 4 tabs (40mg) x 2 days; 3 tabs (30mg) x 2 days; 2 tabs (20mg) x 2 days: 1 tab (10mg) x 2 days
Your glucose levels will run higher on steroids. Monitor blood glucose levels closely. While in the hospital your Lantus was given at 12 units in evenings.
Prescriptions:
New
prednisone 10 mg tablet
10 mg PO DAILY Qty: 20 0RF
Rx Instructions:
Take 4 tabs (40mg) x 2 days; 3 tabs (30mg) x 2 days; 2 tabs (20mg) x 2 days: 1 tab (10mg) x 2 days
Continued
insulin glargine [Lantus U-100 Insulin] 1,000 UNITS/10 ML solution
8 units SC HS
aspirin 81 MG tablet,delayed release (DR/EC)
81 mg PO DAILY
albuterol sulfate 1 PUFF HFA aerosol inhaler
2 puff inhalation R Q4HPRN PRN (Reason: sob/wheezing) Qty: 1 0RF
Rx Instructions:
please give with spacer
insulin aspart U-100 [Novolog FlexPen U-100 Insulin] 100 unit/mL (3 mL) insulin pen
10 unit SC AC
gabapentin 100 mg Capsule
100 mg PO BID
ergocalciferol (vitamin D2) 1,250 mcg (50,000 unit) Capsule
1,250 mcg PO TH
PreserVision AREDS 4,296 mcg-226 mg-90 mg Capsule
1 cap PO DAILY
Trelegy Ellipta 100-62.5-25 mcg Blister With Device
1 inh INHALATION R DAILY
Discharge Orders:
Discharge Patient (As Directed); Ordered 08/21/24
Ordered By: Nelda Bray
Discharge Date and Time
Discharge Date/Time: 08/21/24 14:59
Print Language: ICELANDIC
== END 2024-08-21 14:59 | disposition home or self-care (01) | DRG 190 ==
LOC: 4 WEST ACU 20:39
PROVIDERS: Physician Assistant Medical; ADMITTING PHYSICIAN Internal Medicine; ATTENDING PHYSICIAN Student in an Organized Health Care Education/Training Program; CONSULT PHYSICIAN Internal Medicine Critical Care Medicine; EMERGENCY PHYSICIAN Student in an Organized Health Care Education/Training Program; FAMILY PHYSICIAN Family Medicine
PROC: 5A09357 Assistance with Respiratory Ventilation, Less than 24 Consecutive Hours, Continuous Positive Airway Pressure (ICD-10-PCS; 2024-08-20)
DX: J44.1 Chronic obstructive pulmonary disease with (acute) exacerbation (principal); J96.21 Acute and chronic respiratory failure with hypoxia; I13.0 Hypertensive heart and chronic kidney disease with heart failure and stage 1 through stage 4 chronic kidney disease, or unspecified chronic kidney disease; I50.32 Chronic diastolic (congestive) heart failure; I27.20 Pulmonary hypertension, unspecified; D63.1 Anemia in chronic kidney disease; E11.22 Type 2 diabetes mellitus with diabetic chronic kidney disease; E11.319 Type 2 diabetes mellitus with unspecified diabetic retinopathy without macular edema; E11.42 Type 2 diabetes mellitus with diabetic polyneuropathy; Z66 Do not resuscitate; E11.65 Type 2 diabetes mellitus with hyperglycemia; N18.30 Chronic kidney disease, stage 3 unspecified; E66.09 Other obesity due to excess calories; Z68.39 Body mass index [BMI] 39.0-39.9, adult; Z99.81 Dependence on supplemental oxygen; E66.812 Obesity, class 2; E78.00 Pure hypercholesterolemia, unspecified; G47.33 Obstructive sleep apnea (adult) (pediatric); G89.4 Chronic pain syndrome; M79.7 Fibromyalgia; R91.1 Solitary pulmonary nodule; Z96.653 Presence of artificial knee joint, bilateral; Z79.4 Long term (current) use of insulin; Z87.440 Personal history of urinary (tract) infections; Z87.891 Personal history of nicotine dependence
CPT/HCPCS: 71046; 80048; 80053; 82962; 83036; 83880; 84145; 84484; 85025; 85027; 85379; 85730; 93005; 94640; 94660; 96365; 96366; 96367; 96372; 96375; 97162; 97166; 99285

== ENCOUNTER → 2024-10-09 11:10 | Outpatient (REF) | payer OTHER, SELFPAY | LOC: HWRCS 11:10 | PROVIDERS: ATTENDING PHYSICIAN Physician Assistant; FAMILY PHYSICIAN Family Medicine | DX: I50.32 Chronic diastolic (congestive) heart failure (principal); R06.02 Shortness of breath | CPT/HCPCS: 93306 ==